=== PATIENT | male | born 1970 | race Caucasian/White ===

== ENCOUNTER 2019-07-11 15:10 | Emergency (ER) | payer MEDICAID ==
[~2019-07-11] VITALS: Ht 188 cm; Wt 90.7 kg
[2019-07-11 15:27] VITALS: BP 131/93
--- NOTE | 2019-07-11 16:02 | Emergency Room Report ---
History of Present Illness General Chief Complaint: Skin Rash/Abscess Source: Patient Present Illness HPI 49-year-old male with no symptom past medical history here complaining of an abscess that is draining the left inner thigh x5 days. Patient reports that it might be a spider bite however appears to be a laceration that is now healing through secondary intention. Denies any fever chills, chest pain, shortness of. Up-to-date with tetanus shot. Has full range of motion, rates the pain 5 out of 10 without radiation. Denies any tingling or numbness. Neurovascularly intact. Allergies: Coded Allergies: No Known Allergies (Unverified , 07/11/19) COVID-19 Screening Contact w/high risk pt: No Recent Travel to affected area: No Experienced COVID-19 symptoms?: No COVID-19 Testing performed CLOTHING EXAMINER: No Patient History Past Medical History: see triage record Past Surgical History: none Pertinent Family History: none Immunizations: UTD Reviewed Nursing Documentation: PMH: Agreed; PSxH: Agreed Nursing Documentation-PMH Past Medical History: No Stated History Review of Systems All Other Systems: negative except mentioned in HPI Physical Exam Vital Signs Date Time Temp Pulse Resp B/P (MAP) Pulse Ox O2 Delivery O2 Flow Rate FiO2 07/11/19 15:20 98.1 87 19 131/93 (106) 95 Room Air Sp02 EP Interpretation: reviewed, normal General Appearance: no apparent distress, alert, GCS 15, non-toxic Head: normocephalic, atraumatic Eyes: bilateral eye normal inspection, bilateral eye PERRL ENT: hearing grossly normal, normal pharynx, no angioedema, normal voice Neck: full range of motion, supple/symm/no masses Respiratory: chest non-tender, lungs clear, normal breath sounds, no rhonchi, no retraction, no wheezing, speaking full sentences Cardiovascular #1: regular rate, rhythm, no edema, no murmur Gastrointestinal: normal bowel sounds, non tender, soft, non-distended, no guarding, no rebound Genitourinary: no CVA tenderness Musculoskeletal: back normal, normal range of motion, no calf tenderness, gait/ station normal, non-tender Neurologic: alert, motor strength/tone normal, oriented x3, sensory intact, responsive, speech normal Psychiatric: judgement/insight normal, memory normal, mood/affect normal, no suicidal/homicidal ideation Skin: other - Closing lacerations are secondary intention left Lymphatic: no adenopathy Medical Decision Making PA Attestation All my diagnosis and treatment plans were reviewed ad discussed with my supervising physician Dr. Bolivar Diagnostic Impression: Primary Impression: Infected open wound ER Course 49-year-old male with no symptom past medical history here complaining of an abscess that is draining the left inner thigh x5 days. Patient reports that it might be a spider bite however appears to be a laceration that is now healing through secondary intention. Denies any fever chills, chest pain, shortness of. Up-to-date with tetanus shot. Has full range of motion, rates the pain 5 out of 10 without radiation. Denies any tingling or numbness. Neurovascularly intact. Ddx considered but are not limited to : Cellulitis, laceration,, superficial infection, abscess Vital signs: are WNL, pt. is afebrile H&PE are most consistent with: Infected open wound ORDERS: Keflex, Bactrim, ibuprofen ED INTERVENTIONS: Wound clean and dressed DISCHARGE: At this time pt. is stable for d/c to home. Will provide printed patient care instructions, and any necessary prescriptions. Care plan and follow up instructions have been discussed with the patient prior to discharge. Patient to take medication as directed, follow with primary doctor, if worsening symptoms return to the emergency room Last Vital Signs Date Time Temp Pulse Resp B/P (MAP) Pulse Ox O2 Delivery O2 Flow Rate FiO2 07/11/19 15:27 98.1 87 19 131/93 95 Room Air Disposition: HOME, SELF-CARE Condition: Stable Scripts Ibuprofen (Ibu) 800 Mg Tablet 800 MG PO TID, #30 TAB Prov: Daysi Martines 07/11/19 Trimethoprim/Sulfamethoxazole 160/800* (BACTRIM DS TABLET*) 1 Each Tablet 1 TAB ORAL TWICE A DAY for 7 Days, #14 TAB Prov: Daysi Martines 07/11/19 Cephalexin* (KEFLEX*) 500 Mg Capsule 500 MG ORAL EVERY 6 HOURS for 7 Days, #28 CAP Prov: Daysi Martines 07/11/19 Patient Instructions: Abscess Additional Instructions: Take medication as directed, follow-up primary doctor, if worsening symptoms return to the emergency room Daysi Martines July 11, 2019 16:02
[2019-07-11] MEDS ORDERED: CEPHALEXIN500 MG ORAL (16:03)
[2019-07-11] MEDS ORDERED: BACTRIM DS TAB1 EAC1 ORAL (16:03)
[2019-07-11] MEDS ORDERED: IBU800 MG PO (16:03)
[2019-07-11 16:36] VITALS: BP 128/88
== END 2019-07-11 16:36 | disposition home or self-care (01) ==
LOC: EMR 15:53
DX: L02.416 Cutaneous abscess of left lower limb (principal)
CPT/HCPCS: 99282